=== PATIENT | male | born 1955 | race Caucasian/White ===

== ENCOUNTER 2016-11-20 15:30 | Emergency (ER) | payer OTHER ==
[2016-11-20 15:42] VITALS: BP 157/97; PULSE 95; TEMP 99; BMI 29.5
--- NOTE | 2016-11-20 16:28 | PDOC ---
History of Present Illness <Fany Cardona - Last Filed: 11/20/16 16:36> - History of Present Illness Initial Comments: 11/20/16 16:25 "The patient is a 61 year old male, with a significant past medical history of hypertension, hyperlipidemia, chronic low back pain and muscle pain, and taking 81mg aspirin daily, presents to the emergency department with right shoulder pain and a contusion to his head s/p slip and fall at work today. The patient states he slipped on water at work this afternoon, subsequently hitting the left side of his head on a conveyer before falling onto his side. Denies striking his head on the ground, denies LOC. The patient reports reaching his right arm back to stop his fall and landing onto his shoulder. He reports pain to his anterior right shoulder when he ranges the shoulder joint. He denies any bruising or swelling to the right upper extremity. Denies hand or wrist pain. Denies neck pain. Denies weakness/numbness in any extremity. Pt was able to ambulate immediately after the fall. Denies pain in his lower extremities or hips, denies CP/SOB. Did not feel lightheaded prior to falling. Denies GILES/N/V. Denies neck pain. He denies loss of consciousness or visual changes. He denies chest pain, shortness of breath, headache and dizziness. He denies fever, chills, nausea, vomit, diarrhea and constipation. Allergies: NKDA Social history: former tobacco use. Denies tobacco use recently. Social alcohol consumtion. PCP - Dr. Steele <Stanley Matos - Last Filed: 11/22/16 10:13> - General Chief Complaint: Injury Stated Complaint: SLIP & FALL, RT SHOULDER, SWELLING TO FOREHEAD Time Seen by Provider: 11/20/16 15:32 Past History <Fany Cardona - Last Filed: 11/20/16 16:36> - Past Medical History HTN: Yes Hypercholesterolemia: Yes Other medical history: BACK ISSUES - Suicide/Smoking/Psychosocial Hx Smoking History: Never smoked Have you smoked in the past 12 months: No Hx Alcohol Use: (occasional) Drug/Substance Use Hx: No Substance Use Type: Alcohol <Stanley Matos - Last Filed: 11/22/16 10:13> - Past Medical History Allergies/Adverse Reactions: Allergies Allergy/AdvReac Type Severity Reaction Status Date / Time No Known Allergies Allergy Verified 11/20/16 15:33 Home Medications: Ambulatory Orders Aspirin [ASA -] 81 mg PO DAILY 07/18/15 Losartan Potassium [Cozaar] 10 mg PO DAILY 07/18/15 Colesevelam HCl [Welchol (Nf)] mg PO ASDIR 11/20/16 Hydrocodone mg PO ASDIR 11/20/16 Review of Systems - Review of Systems Comments:: 11/20/16 16:27 """GENERAL/CONSTITUTIONAL: No fever or chills. No weakness. HEAD, EYES, EARS, NOSE AND THROAT: (+) left sided head injury. No change in vision. No ear pain or discharge. No sore throat. CARDIOVASCULAR: No chest pain or shortness of breath. RESPIRATORY: No cough, wheezing, or hemoptysis. GASTROINTESTINAL: No nausea, vomiting, diarrhea or constipation. GENITOURINARY: No dysuria, frequency, or change in urination. MUSCULOSKELETAL: (+) right shoulder pain. No joint or muscle swelling. No neck or back pain. SKIN: No rash NEUROLOGIC: No headache, vertigo, loss of consciousness, or change in strength/ sensation. ENDOCRINE: No increased thirst. No abnormal weight change. HEMATOLOGIC/LYMPHATIC: No anemia, easy bleeding, or history of blood clots. ALLERGIC/IMMUNOLOGIC: No hives or skin allergy. """ <Stanley Matos - Last Filed: 11/22/16 10:13> *Physical Exam - Vital Signs Last Vital Signs Temp Pulse Resp BP Pulse Ox 99 F 95 H 18 157/97 97 11/20/16 15:30 11/20/16 15:30 11/20/16 15:30 11/20/16 15:30 11/20/16 15:30 <Fany Cardona - Last Filed: 11/20/16 16:36> - Vital Signs Last Vital Signs Temp Pulse Resp BP Pulse Ox 99 F 95 H 18 157/97 97 11/20/16 15:30 11/20/16 15:30 11/20/16 15:30 11/20/16 15:30 11/20/16 15:30 - Physical Exam Comments: 11/20/16 16:27 """GENERAL: Awake, alert, and fully oriented, in no acute distress HEAD: (+) hematoma to L scientology EYES: PERRLA, EOMI, sclera anicteric, conjunctiva clear ENT: Auricles normal inspection, hearing grossly normal, nares patent, oropharynx clear without exudates. Moist mucosa NECK: Nontender, no stepoffs, Normal ROM, supple, no lymphadenopathy, JVD, or masses LUNGS: Breath sounds equal, clear to auscultation bilaterally. No wheezes, and no crackles HEART: Regular rate and rhythm, normal S1 and S2, no murmurs, rubs or gallops ABDOMEN: Soft, nontender, normoactive bowel sounds. No guarding, no rebound. No masses EXTREMITIES: (+) R shoulder with no tenderness but limited ROM due to pain NEUROLOGICAL: Cranial nerves II through XII intact. 5/5 strength and sensation in all extremities, Normal speech, normal gait SKIN: Warm, Dry, normal turgor, no rashes or lesions noted. """ <ShawnaStanley - Last Filed: 11/22/16 10:13> ED Treatment Course - RADIOLOGY Radiograph Interpretation: EXAM#: TYPE/EXAM: RESULT: RAD/SHOULDER-RIGHT Status post fall. X-ray of the right shoulder, 2 views. There are mild osteoarthritic changes involving the acromioclavicular joint. The alignment satisfactory without evidence of fracture or dislocation. 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 CT facial bones without contrast INDICATION: Fall. Head injury. Face injury. COMPARISON: None available. FINDINGS: There is no acute intracranial hemorrhage or focal extra-axial collection. There is no mass effect , midline shift or hydrocephalus. The ventricles, sulci and cisterns are appropriate in size for stated age. There is no mass effect, midline shift or hydrocephalus. There is calcific atherosclerosis along the internal carotid artery siphons and intradural vertebral arteries. There is hematoma and edema within the soft tissues overlying the lateral wall of the left orbit and left frontal bone. The calvarium is intact. The visualized mastoid air cells are clear. No evidence of acute facial bone fracture. Orbital dennison are intact. Globes are round and symmetric. Retrobulbar fat is maintained. Zygomatic arches and mandibles are intact. There are prominent odontogenic periapical lucencies in the left mandible, at the roots of teeth #20 and #18. Bilateral palatine tonsilloliths are noted. Mild symmetric soft tissue prominence along the tongue base is most likely attributed to lingual tonsillar hypertrophy. There is mild mucosal thickening along the frontal sinuses, anterior ethmoid air cells and maxillary sinuses. There are no fluid levels are frothy secretions in the paranasal sinuses to suggest acute sinusitis. Ostiomeatal complexes, sphenoethmoidal recesses and frontal recesses are patent. There is mild S-shaped deviation of the nasal septum. IMPRESSION: No evidence of acute intracranial hemorrhage, acute skull fracture acute facial bone fracture. Hematoma and edema in the soft tissues overlying the left frontal bone and lateral wall of the left orbit. Reported By: Renetta Shelley MD 11/20/16 1607 <Fany Cardona - Last Filed: 11/20/16 16:36> - RADIOLOGY Radiology Studies Ordered: Category Date Time Status FACIAL BONES CT W/O CONTRAST [CT] Stat CT Scan 11/20/16 15:[address] WITHOUT CONTRAST [CT] Stat CT Scan 11/20/16 15:38 Completed SHOULDER-RIGHT [RAD] Stat Radiology 11/20/16 15:38 Completed <Stanley Matos - Last Filed: 11/22/16 10:13> Medical Decision Making - Medical Decision Making 11/20/16 16:28 61 M on baby aspirin presents with L forehead hematoma and R shoulder pain s/p mechanical fall. No evidence of c spine injury. No neuro deficits. No other external signs of trauma on exam. - CT head/facial bones - XR R shoulder 11/20/16 16:[address] negative. Pt to be DC"ed with ortho f/u. <Stanley Matos - Last Filed: 11/22/16 10:13> *DC/Admit/Observation/Transfer - Attestations Scribe Attestion: 11/20/16 16:36 Documentation prepared by Fany Cardona, acting as medical staff manager for Stanley Matos MD, <Fany Cardona - Last Filed: 11/20/16 16:36> - Attestations Physician Attestion: 11/20/16 16:32 I, Dr. Stanley Matos MD, attest that this document has been prepared under my direction and personally reviewed by me in its entirety. I further attest, that it accurately reflects all work, treatment, procedures and medical decision -making performed by me. <Stanley Matos - Last Filed: 11/22/16 10:13> Diagnosis at time of Disposition: Fall - Discharge Dispostion Disposition: HOME Condition at time of disposition: Stable - Referrals Referrals: Herminio Steele [Primary Care Provider] - Stanley Hunt MD [Staff Physician] - - Patient Instructions Printed Discharge Instructions: How to Prevent Falls, DI for Shoulder Pain Additional Instructions: Follow up with an orthopedic surgeon to have your shoulder pain further evaluated. You may need an MRI in the future. If you experience worsening headache, nausea, vomiting, or any other concerning symptoms, return to the ER immediately.
== END 2016-11-20 16:40 | disposition home or self-care (01) ==
LOC: FER 15:30
DX: Z04.3 Encounter for examination and observation following other accident (principal); W01.0XXA Fall on same level from slipping, tripping and stumbling without subsequent striking against object, initial encounter; Y93.89 Activity, other specified; Y92.9 Unspecified place or not applicable; Y99.0 Civilian activity done for income or pay; I10 Essential (primary) hypertension; E78.00 Pure hypercholesterolemia, unspecified; G89.29 Other chronic pain
CPT/HCPCS: 70450-TC; 70486-TC; 73030-TC-RT; 99282-25

== ENCOUNTER 2017-01-09 06:08 | Day surgery (SDC) | payer OTHER ==
[2017-01-02 13:14] VITALS: BMI 29.5
[2017-01-09] MEDS ORDERED: MIDAZOLAM HCL 2 MG/2 ML SINGLE DOSE VIAL ONE ×2 (06:36→07:54)
[2017-01-09] MEDS ORDERED: DEXAMETHASONE SOD PHOSPHATE/PF 10 MG/ML SDV ONE (06:36)
[2017-01-09] MEDS ORDERED: ROPIVACAINE HCL 0.5% 30ML VIAL ONE (06:36)
[2017-01-09] MEDS ORDERED: EPINEPHrine 1:1,000 1 MG/1 ML - 30ML VIAL (INJECTION) ONE (07:07)
[2017-01-09] MEDS ORDERED: BUPIVACAINE HCL/EPINEPHRINE/PF 30 ML VIAL IJ ONE (07:07)
[2017-01-09] MEDS ORDERED: PROPOFOL 20 ML ONE ×4 (07:19→09:53)
[2017-01-09] MEDS ORDERED: ceFAZolin SODIUM 1 GM VIAL ONE (07:22)
[2017-01-09] MEDS ORDERED: SODIUM CHLORIDE 0.9% P/F 10 ML VIAL IJ ONE (07:22)
[2017-01-09] MEDS ORDERED: SUCCINYLCHOLINE CHLORIDE 200 MG/10 ML VIAL ONE (07:23)
[2017-01-09] MEDS ORDERED: ePHEDrine SULFATE 50 MG/1 ML AMPULE ONE (07:23)
--- NOTE | 2017-01-09 07:36 | HP ---
History & Physical Update - History History: No Change - Physical Physical: No Change - Assessment Assessment: No Change - Plan Plan: No Change
[2017-01-09] MEDS ORDERED: ONDANSETRON 4 MG/2 ML VIAL ONE (08:02)
[2017-01-09] MEDS ORDERED: DEXAMETHASONE SOD PHOSPHATE 4 MG/1 ML VIAL ONE (08:02)
[2017-01-09] MEDS ORDERED: ONDANSETRON 4 MG/2 ML VIAL IVPUSH PRN (10:06)
[2017-01-09] MEDS ORDERED: oxyCODONE HCL 5 MG TABLET PO PRN ×3 (10:06→10:26)
[2017-01-09] MEDS ORDERED: LACTATED RINGERS SOLUTION 1,000 ML IV SCH (10:15)
[2017-01-09] MEDS ORDERED: oxyCODONE HCL 10 MG SUSTAINED ACTING TABLET PO ONE (10:26)
--- NOTE | 2017-01-09 10:35 | DS ---
Physical Examination Vital Signs: Vital Signs Temperature 98.2 F 01/09/17 06:38 Pulse Rate 67 01/09/17 06:38 Respiratory Rate 18 01/09/17 06:38 Blood Pressure 128/78 01/09/17 06:38 O2 Sat by Pulse Oximetry (%) 97 01/09/17 06:38 Discharge Summary Reason For Visit: ROTATOR CUFF TEAR, BICEPS DISLOCATION RIGHT SHLD Condition: Good - Instructions Diet, Activity, Other Instructions: Post Operative Instructions: Shoulder Arthroscopy Dr Jose Spence 1. Pain following a Shoulder Arthroscopy is variable and can be significant. Some patients will have more pain than others. You have been provided with a prescription for medication that contains a narcotic. You are not allowed to drive while on this medication. Feel free to take medications such as Ibuprofen or Naprosyn in addition to the pain medicine if you do not have any problems with the NSAID class of medications. 2. Apply ice to the shoulder for 15 minutes every hour. You may continue this for as many days as necessary. 3. You may find sleeping on an incline (reclining chair) to be more comfortable for the first few days. 4. You must remain in your sling at all times except when showering. The only exception to this is to allow you to stretch your elbow a few times a day to prevent your hand and forearm from swelling. 5. You are not to use your arm to reach for anything, lift anything or carry anything until instructed otherwise. 6. You may remove the bandages in 48 hours. You may shower at that point. 7. Place band-aids on the sutures after your shower.Do not put any creams or lotions on the incision until after the sutures are removed. 8. Please call the office to schedule a visit to have your sutures removed. 9. If for any reason you believe you may have an infection or are concerned, please feel free to call me. I can be reached through our office number 24 hours a day. 10. Please call our office with any questions; we will review the surgical findings during your post-operative visit. Disposition: HOME - Home Medications Comprehensive Discharge Medication List: Ambulatory Orders Colesevelam HCl [Welchol (Nf)] 2 tab PO DAILY 11/20/16 Aspirin Coated [Ecotrin -] 81 mg PO DAILY 01/02/17 Hydrocodone/Acetaminophen [Hydrocodon-Acetaminophn 10325] 1 each PO TID PRN 12/09 Losartan Potassium 25 mg PO DAILY 01/02/17
--- NOTE | 2017-01-09 10:35 | OP ---
Operative Note - Note: Operative Date: 01/09/17 Pre-Operative Diagnosis: Right Massive complete rotator cuff tear. Biceps dislocation Post-Operative Diagnosis: Same as Pre-op Surgeon: Jose Spence Museum Curator: Joe Lopez Anesthesia: General Operative Report Dictated: Yes
--- NOTE | 2017-01-09 10:59 | SURG ---
Surgery Wire Harness Assembler Note Wire Harness Assembler: Doreen Forde PA-C Date of Service: 01/09/17 Diagnosis: Right rotator cuff tear, subscapularis tear, biceps tear Procedure: Right shoulder arthrocsopy with rotator cuff repair, open subscapularis repair and biceps tenodesis. I was present for the entirety of the operative procedure. For further detail, please refer to operative report. Visit type - Case Type Case Type: Scheduled Admission - Emergency Emergency Visit: No - New patient This patient is new to me today: Yes Date on this admission: 01/09/17
[2017-01-09] MEDS ORDERED: oxyCODONE HCL 10 MG SUSTAINED ACTING TABLET ONE (11:32)
[2017-01-09 11:39] VITALS: PULSE 77; TEMP 98.1
[2017-01-09 12:07] VITALS: BP 127/77
--- NOTE | 2017-01-16 14:12 | PATH ---
Surgical Pathology Report Patient Name: ANGELIA GARCIA Med. Rec. #: [id number] /Age/Gender: 1955 (Age: 61) / M Account: [id number] Location: [facility] AMB[facility]ORY Taken: 01/09/2017 Received: 01/09/2017 Reported: 01/16/2017 Physicians: Jose Spence M.D. Specimen(s) Received A: SHAVINGS RIGHT SHOULDER B: BICEP TENDON RIGHT ARM Clinical History Rotator cuff tear, biceps dislocation right shoulder Final Diagnosis A. SHOULDER, RIGHT, ARTHROSCOPIC SHAVINGS: FIBROSYNOVIAL TISSUE, FIBROCOLLAGENOUS TISSUE AND SKELETAL MUSCLE. B. BICEPS TENDON, RIGHT ARM, REPAIR: FIBROCOLLAGENOUS AND FIBROSYNOVIAL TISSUE. Electronically Signed Doreen Smith M.D. Gross Description A. Received in formalin, labeled "shavings right shoulder," is a 3.3 x 2.4 x 0.3 cm. aggregate of holden-yellow soft tissue fragments. A fundraising sale representative portion is submitted in one cassette. B. Received in formalin labeled "biceps tendon right arm," is a 3.2 x 1.4 x 1.0 cm portion of holden fibrous tissue, consistent with a tendon. Global Climate Change Researcher sections are submitted in one cassette. 01/12/201701/12/2017
== END 2017-01-09 12:05 | disposition home or self-care (01) ==
LOC: FASU 06:08
PROVIDERS: ATTEND Orthopaedic Surgery
PROC: 0RBJ4ZZ Excision of Right Shoulder Joint, Percutaneous Endoscopic Approach (ICD-10-PCS; 2017-01-09)
PROC: 0LB14ZZ Excision of Right Shoulder Tendon, Percutaneous Endoscopic Approach (ICD-10-PCS; principal; 2017-01-09 08:19)
PROC: 0RNJ4ZZ Release Right Shoulder Joint, Percutaneous Endoscopic Approach (ICD-10-PCS; 2017-01-09 08:19)
DX: M75.121 Complete rotator cuff tear or rupture of right shoulder, not specified as traumatic (principal); M65.811 Other synovitis and tenosynovitis, right shoulder; M24.111 Other articular cartilage disorders, right shoulder; M66.821 Spontaneous rupture of other tendons, right upper arm; Z53.33 Arthroscopic surgical procedure converted to open procedure
CPT/HCPCS: 88304-TC; 94760